=== PATIENT | male | born 1945 | race Asian ===

== ENCOUNTER → 2023-08-26 | Day surgery (SDC) | payer OTHER ==
[~2023-08-26] VITALS: Ht 165.1 cm; Wt 72.7 kg
[~2023-08-26] MED LIST: ALBU18HF12 IH; ALBUTEROL SULFATE 2.5 MG/0.5 ML 5 ML NEB SOLUTION NEB ONE; ALLO100T PO; AMLO10TA55 PO; ASPI-1444 PO; ATOR20TA65 PO; AZEL137S8 NASAL; BENZOCAINE 20% 50 MCG/SPRAY 57 GM ONE; DAPA5TAB PO; DULA0.75 SQ; FLUT12AE21 IH; FURO20 PO; FentaNYL CITRATE PF 100 MCG/2 ML VIAL ONE; GABA-1181 PO; HYDR25TA84 PO; INSU100V50 SQ; IRBE300T26 PO; LIDOCAINE 2% 11 ML JELLY ONE; LIDOCAINE 4% 50 ML SOLUTION ONE; METF-1211 PO; MIDAZOLAM HCL 2 MG/2 ML VIAL ONE; MethylPREDNISolone SOD SUCC 125 MG/2 ML VIAL ONE; SODIUM CHLORIDE 0.9% 1,000 ML ONE
[2023-08-26] MEDS: SODIUM CHLORIDE 0.9% 1,000 ML IV ONE (07:43)
[2023-08-26 08:01] LABS: GLUCOMETER DEV NAME(LOC) SDS.; GLUCOSE,POINT OF CARE 177 MG/DL (70-110)
[2023-08-26 09:10] VITALS: PULSE 90; RESP 16; O2SAT 97
[2023-08-26] MEDS: MethylPREDNISolone SOD SUCC 125 MG/2 ML VIAL IVP ONE (09:29)
[2023-08-26] MEDS: PROMETHAZINE HCL/PHENYLEPHRINE/CODEINE 5 ML ORAL.SYG PO ONE (10:04)
== END | disposition still patient (30) ==
LOC: SURGERY 06:32
PROVIDERS: ATTEND Internal Medicine Critical Care Medicine
DX: J38.4 Edema of larynx (principal); B37.0 Candidal stomatitis; I10 Essential (primary) hypertension; Z79.899 Other long term (current) drug therapy; Z98.890 Other specified postprocedural states; Z98.41 Cataract extraction status, right eye; Z86.11 Personal history of tuberculosis; E11.9 Type 2 diabetes mellitus without complications; Z79.82 Long term (current) use of aspirin
CPT/HCPCS: 31623; 82962; 87206; 87101; 87220; 87070; 88108; 88305; 31624; 94640; 71045; 87015; J3010; J2250; J2930; J3490; Q9967; J7030; Z7610